=== PATIENT | female | born 1985 | race Caucasian/White ===

== ENCOUNTER 2019-07-05 21:38 | Emergency (ER) | payer OTHER ==
[~2019-07-05] VITALS: Ht 154.9 cm; Wt 72.6 kg
[~2019-07-05 21:38] MED LIST: CIPROFLOXACIN500 MG PO; CLINDAMYCIN150 MG PO; DAYPRO600 M1 PO; NKHM; PERCOCET 325 MG1 TA2 PO; ROBAXIN750 MG PO; SYNTHROID0.088 MG PO; TRAMADOL HCL50 MG PO; VICODIN 5/500 505 MG PO; ZITHROMAX Z PA250 MG PO
[2019-07-05] MEDS ORDERED: FLONASE ALLERG9.9 ML NAS (23:15)
[2019-07-05] MEDS ORDERED: ALLEGRA ALLERG180 M2 PO (23:15)
== END 2019-07-05 23:24 | disposition home or self-care (01) ==
LOC: ED 21:38
DX: J02.9 Acute pharyngitis, unspecified (principal); R51 Headache; R09.89 Other specified symptoms and signs involving the circulatory and respiratory systems; R11.0 Nausea; R68.83 Chills (without fever); F17.200 Nicotine dependence, unspecified, uncomplicated; Z88.8 Allergy status to other drugs, medicaments and biological substances; Z79.899 Other long term (current) drug therapy

== ENCOUNTER → 2019-10-21 | Outpatient (CLI) | payer OTHER ==
[~2019-10-21] MED LIST changes: +ALLEGRA ALLERG180 M2 PO; +FLONASE ALLERG9.9 ML NAS
[2019-10-21 09:12] LABS: FREE T4 1.04 ng/dl (0.76-1.46); THYROID STIM HORMONE (HS) 1.64 uIU/ml (0.358-4.75)
== END | disposition home or self-care (01) ==
LOC: LAB 08:19
PROVIDERS: Pediatrics
DX: E11.9 Type 2 diabetes mellitus without complications (principal); R23.2 Flushing; R63.5 Abnormal weight gain

== ENCOUNTER → 2020-02-23 | Outpatient (CLI) | payer OTHER | END | disposition home or self-care (01) | LOC: LAB 14:04 → US 14:30 | PROVIDERS: ATTEND Pediatrics | DX: E03.9 Hypothyroidism, unspecified (principal); L68.0 Hirsutism; N91.2 Amenorrhea, unspecified; E88.81 Metabolic syndrome and other insulin resistance; E78.5 Hyperlipidemia, unspecified; E11.9 Type 2 diabetes mellitus without complications ==

== ENCOUNTER 2020-10-22 12:02 | Emergency (ER) | payer OTHER ==
[~2020-10-22] VITALS: Ht 154.9 cm; Wt 65.8 kg
[2020-10-22 12:55] LABS: BASO % 0.5 % (0.0-1.0); EOS # 0.1 10*3/uL (0.0-0.4); EOS % 1.7 % (1.0-4.0); HEMATOCRIT 41.1 % (37.0-47.0); LYMPH # 2.8 10*3/uL (1.3-4.4); LYMPH % 35.7 % (27.0-41.0); MEAN CELL VOLUME 86.5 fl (81.0-99.0); MEAN CORPUSCULAR HGB 29.1 pg (27.0-31.0); MEAN CORPUSCULAR HGB CONC 33.6 g/dl (33.0-37.0); MEAN PLATELET VOLUME 9.6 fl (9.6-12.3); MONO # 0.7 10*3/uL (0.1-1.0); MONO % 8.7 % (3.0-9.0); NEUT # 4.1 10*3/uL (2.3-7.9); NEUT % 53.1 % (47.0-73.0); PLATELET COUNT AUTOMATED 262 10*3/uL (130-400); RED BLOOD COUNT 4.75 10*6/uL (4.10-5.10); RED CELL DISTRI WIDTH 11.9 % (0-14.5); WHITE BLOOD COUNT 7.7 10*3/uL (4.8-10.8)
[2020-10-22 13:11] LABS: ALBUMIN 3.8 gm/dl (3.1-4.5); ALKALINE PHOSPHATASE 103 U/L (45-117); BUN 12 mg/dl (7-24); CHLORIDE 110 mmol/L (98-107); CREATININE 0.63 mg/dL (0.55-1.02); POTASSIUM 3.9 mmol/L (3.5-5.1); SGOT/AST 13 IU/L (3-35); SGPT/ALT 37 U/L (12-78); SODIUM 140 mmol/L (136-145)
== END 2020-10-22 13:22 | disposition home or self-care (01) ==
LOC: ED 12:02
PROVIDERS: Physician Assistant
DX: E11.9 Type 2 diabetes mellitus without complications (principal); R42 Dizziness and giddiness; R53.1 Weakness; R11.0 Nausea; Z79.4 Long term (current) use of insulin; Z88.8 Allergy status to other drugs, medicaments and biological substances; Z79.899 Other long term (current) drug therapy; Z79.2 Long term (current) use of antibiotics

== ENCOUNTER 2021-08-13 15:59 | Emergency (ER) | payer OTHER ==
[~2021-08-13] VITALS: Ht 154.9 cm; Wt 63.5 kg
[2021-08-13] MEDS ORDERED: IBUPROFEN600 MG PO (19:34)
[2021-08-13] MEDS ORDERED: METHOCARBAMOL500 M1 PO (19:34)
== END 2021-08-13 19:34 | disposition home or self-care (01) ==
LOC: ED 15:59
DX: S39.012A Strain of muscle, fascia and tendon of lower back, initial encounter (principal); Z88.8 Allergy status to other drugs, medicaments and biological substances; Z79.899 Other long term (current) drug therapy; W00.0XXA Fall on same level due to ice and snow, initial encounter; Y93.89 Activity, other specified; Y92.89 Other specified places as the place of occurrence of the external cause; Y99.8 Other external cause status

== ENCOUNTER 2021-12-04 07:39 | Emergency (ER) | payer OTHER ==
[~2021-12-04] VITALS: Ht 154.9 cm; Wt 63.5 kg
[~2021-12-04 07:39] MED LIST changes: +IBUPROFEN600 MG PO; +METHOCARBAMOL500 M1 PO
[2021-12-04] MEDS ORDERED: DULOXETINE HCL30 MG PO (07:59)
[2021-12-04] MEDS ORDERED: FAMOTIDINE20 M1 PO (07:59)
[2021-12-04] MEDS ORDERED: BUPROPION HCL150 M1 PO (07:59)
[2021-12-04] MEDS ORDERED: LISINOPRIL10 M1 PO (08:00)
[2021-12-04] MEDS ORDERED: GLIPIZIDE2.5 MG PO (08:00)
[2021-12-04] MEDS ORDERED: VITAMIN D31250 MC1 PO (08:02)
[2021-12-04 08:26] LABS: BILIRUBIN Negative (Negative); BLOOD 3+ (Negative); CLARITY Turbid (Clear); COLOR Yellow (Yellow); GLUCOSE Negative (Negative); KETONE Negative (Negative); LEUKO ESTERASE 3+ (Negative); NITRITE Negative (Negative)
[2021-12-04 08:39] LABS: BACTERIA 4+; RBC TNTC rbc/hpf (0-2); WBC 51-100 wbc/hpf (0-5); YEAST 1+
[2021-12-04] MEDS ORDERED: SEPTDS PO (08:57)
[2021-12-04] MEDS ORDERED: PYRIDIUM200 M1 PO (08:57)
== END 2021-12-04 08:50 | disposition home or self-care (01) ==
LOC: ED 07:39
PROVIDERS: Emergency Medicine
DX: N39.0 Urinary tract infection, site not specified (principal); Z88.8 Allergy status to other drugs, medicaments and biological substances; Z79.899 Other long term (current) drug therapy

== ENCOUNTER 2022-03-16 18:16 | Emergency (ER) | payer OTHER ==
[~2022-03-16] VITALS: Ht 154.9 cm; Wt 63.5 kg
[~2022-03-16 18:16] MED LIST changes: +BUPROPION HCL150 M1 PO; +DULOXETINE HCL30 MG PO; +FAMOTIDINE20 M1 PO; +GLIPIZIDE2.5 MG PO; +LISINOPRIL10 M1 PO; +PYRIDIUM200 M1 PO; +SEPTDS PO; +VITAMIN D31250 MC1 PO
[2022-03-16 20:30] LABS: BASO # 0.1 10*3/uL (0.0-0.1); BASO % 0.4 % (0.0-1.0); EOS # 0.1 10*3/uL (0.0-0.4); EOS % 0.9 % (1.0-4.0); HEMATOCRIT 42.6 % (37.0-47.0); LYMPH # 4.2 10*3/uL (1.3-4.4); LYMPH % 37.4 % (27.0-41.0); MEAN CELL VOLUME 85.7 fl (81.0-99.0); MEAN CORPUSCULAR HGB 29.2 pg (27.0-31.0); MEAN PLATELET VOLUME 9.3 fl (9.6-12.3); MONO # 0.9 10*3/uL (0.1-1.0); MONO % 7.6 % (3.0-9.0); NEUT # 5.9 10*3/uL (2.3-7.9); NEUT % 53.4 % (47.0-73.0); PLATELET COUNT AUTOMATED 293 10*3/uL (130-400); RED BLOOD COUNT 4.97 10*6/uL (4.10-5.10); RED CELL DISTRI WIDTH 11.9 % (0-14.5); WHITE BLOOD COUNT 11.1 10*3/uL (4.8-10.8)
[2022-03-16 20:42] LABS: ACT PARTIAL THROMBO TIME 25.2 SECONDS (20.0-32.1)
[2022-03-16 20:45] LABS: ALKALINE PHOSPHATASE 93 U/L (45-117); BUN 9 mg/dl (7-24); CHLORIDE 107 mmol/L (98-107); CREATININE 0.71 mg/dL (0.55-1.02); POTASSIUM 3.6 mmol/L (3.5-5.1); SGOT/AST 15 IU/L (3-35); SGPT/ALT 27 U/L (12-78); SODIUM 138 mmol/L (136-145); TOTAL PROTEIN 7.4 gm/dL (6.4-8.2)
== END 2022-03-17 00:31 | disposition home or self-care (01) ==
LOC: ED 18:16
PROVIDERS: Emergency Medicine
DX: R07.9 Chest pain, unspecified (principal); Z20.822 Contact with and (suspected) exposure to COVID-19; R51.9 Headache, unspecified; E03.9 Hypothyroidism, unspecified; Z88.8 Allergy status to other drugs, medicaments and biological substances; Z79.899 Other long term (current) drug therapy

== ENCOUNTER 2023-02-02 09:02 | Emergency (ER) | payer OTHER ==
[~2023-02-02] VITALS: Wt 63.5 kg
[2023-02-02] MEDS ORDERED: AMOX-CLAV 875-1 EACH PO (10:15)
== END 2023-02-02 10:17 | disposition home or self-care (01) ==
LOC: ED 09:02
DX: S61.250A Open bite of right index finger without damage to nail, initial encounter (principal); E03.9 Hypothyroidism, unspecified; Z88.8 Allergy status to other drugs, medicaments and biological substances; Z98.890 Other specified postprocedural states; W55.01XA Bitten by cat, initial encounter; Y93.89 Activity, other specified; Y92.89 Other specified places as the place of occurrence of the external cause; Y99.8 Other external cause status

== ENCOUNTER 2023-06-15 13:32 | Emergency (ER) | payer OTHER ==
[~2023-06-15] VITALS: Ht 154.9 cm; Wt 63.5 kg
[~2023-06-15 13:32] MED LIST changes: +AMOX-CLAV 875-1 EACH PO
== END 2023-06-15 20:03 | disposition left against medical advice (07) ==
LOC: ED 13:32
DX: R42 Dizziness and giddiness (principal); R07.89 Other chest pain; G47.00 Insomnia, unspecified; R68.83 Chills (without fever); Z53.21 Procedure and treatment not carried out due to patient leaving prior to being seen by health care provider

== ENCOUNTER 2025-02-23 01:07 | Emergency (ER) | payer OTHER ==
[~2025-02-23] VITALS: Ht 154.9 cm; Wt 63.5 kg
[2025-02-23] MEDS ORDERED: HYDROCHLOROTH12.5 M2 PO (01:30)
[2025-02-23] MEDS ORDERED: Ondansetron Hydrochloride 4 MG/2 ML VIAL IV ONE ×2 (03:30→07:25)
[2025-02-23 03:35] LABS: BILIRUBIN Negative (Negative); BLOOD Negative (Negative); CLARITY Clear (Clear); COLOR Yellow (Yellow); KETONE Trace (Negative); LEUKO ESTERASE Negative (Negative); NITRITE Negative (Negative); PH 7.5 (4.5-8.0); SPECIFIC GRAVITY 1.020 (1.001-1.030); UROBILINOGEN 1.0 E.U./dl (0.0-1.0)
[2025-02-23 03:48] LABS: BASO # 0.1 10*3/uL (0.0-0.1); BASO % 0.5 % (0.0-1.0); EOS # 0.0 10*3/uL (0.0-0.4); EOS % 0.4 % (1.0-4.0); MEAN CELL VOLUME 88.3 fl (81.0-99.0); MEAN CORPUSCULAR HGB 30.0 pg (27.0-31.0); MEAN PLATELET VOLUME 9.5 fl (9.6-12.3); MONO # 0.5 10*3/uL (0.1-1.0); MONO % 4.3 % (3.0-9.0); NEUT # 9.1 10*3/uL (2.3-7.9); NEUT % 79.9 % (47.0-73.0); NUCLEATED RED BLOOD CELL 0.0 % (0.0-0.0); NUCLEATED RED BLOOD CELL 0.0 10*3/uL (0.0-0.0); PLATELET COUNT AUTOMATED 266 10*3/uL (130-400); RED CELL DISTRI WIDTH 11.5 % (0-14.5)
[2025-02-23 03:57] LABS: BACTERIA TRACE; EPITHELIAL CELLS 21-30
[2025-02-23 04:09] LABS: BUN 18 mg/dl (9-23); SGPT/ALT 21 U/L (5-49)
[2025-02-23] MEDS ORDERED: Ondansetron4 MG PO (09:05)
[2025-02-23] MEDS ORDERED: PERCOCET 5-3251 EACH PO (09:05)
== END 2025-02-23 09:15 | disposition home or self-care (01) ==
LOC: ED 01:07
PROVIDERS: Emergency Medicine
DX: K80.50 Calculus of bile duct without cholangitis or cholecystitis without obstruction (principal); K80.20 Calculus of gallbladder without cholecystitis without obstruction; R10.11 Right upper quadrant pain; I10 Essential (primary) hypertension; E07.9 Disorder of thyroid, unspecified; E03.9 Hypothyroidism, unspecified